=== PATIENT | male | born 1945 | race Caucasian/White ===

== ENCOUNTER 2017-03-28 08:21 | Emergency (ER) | payer MEDICARE ==
[~2017-03-28] VITALS: Ht 182.9 cm; Wt 150.0 kg
[~2017-03-28 08:21] MED LIST: ALBUAER3 INH; ASPI1TAB69 PO; BENZ100 PO; CYCL10TA PO; DEXT1TAB18 PO; GABA300C5 PO; GLIP10TA6 PO; HYDR-3535 PO; LISI-515 PO; METF1000 PO; METO-309 PO; OMEP20TA93 PO; OXYC1TAB63 PO; SIMV20TA PO; SITA50 PO; WARF-23 PO
[2017-03-28 08:23] VITALS: BP 136/75; PULSE 80; RESP 17; TEMP 98.2; O2SAT 97
[2017-03-28] MEDS ORDERED: ASPI-516 CHEW (09:11)
[2017-03-28] MEDS ORDERED: FURO1TAB60 PO (09:11)
[2017-03-28] MEDS ORDERED: WARF-60 PO (09:11)
[2017-03-28] MEDS ORDERED: AMIT25TA9 PO (09:11)
[2017-03-28] MEDS: RESP: ALBUTEROL 2.5 MG/3 ML NEB (SCH) INH ×2 (09:40→09:41)
[2017-03-28 09:41] VITALS: O2SAT 96
[2017-03-28] MEDS ORDERED: RESP: ALBUTEROL 2.5 MG/IPRATROPIUM 0.5 MG NEB (SCH) INH ONE (09:45)
[2017-03-28] MEDS ORDERED: methylPREDNISolone SOD SUCC 125 MG/2 ML VIAL IV PUSH ONE (09:45)
[2017-03-28] MEDS ORDERED: SODIUM CHLORIDE 0.9% FLUSH 10 ML FLUSH IVF PRN (09:45)
[2017-03-28 10:05] LABS: AUTOMATED NEUTROPHIL # 7.2 TH/MM3 (1.8-7.7); BASOPHIL # 0.1 TH/MM3 (0-0.2); BASOPHIL % 0.7 % (0.0-2.0); EOSINOPHIL # 0.4 TH/MM3 (0-0.4); EOSINOPHIL % 3.6 % (0.0-4.0); HEMOGLOBIN 14.4 GM/DL (13.0-17.0); LYMPHOCYTE # 3.4 TH/MM3 (1.0-4.8); MEAN CORPUSCULAR HEMOGLOBIN 30.3 PG (27.0-34.0); MEAN CORPUSCULAR HGB CONC 34.4 % (32.0-36.0); MEAN PLATELET VOLUME 7.4 FL (7.0-11.0); MONO % 7.2 % (0.0-8.0); MONOCYTE # 0.9 TH/MM3 (0-0.9); NEUT % 60.5 % (16.0-70.0); PLATELET COUNT 182 TH/MM3 (150-450); RED BLOOD COUNT 4.77 MIL/MM3 (4.50-5.90); RED CELL DISTRIBUTION WIDTH 14.4 % (11.6-17.2)
[2017-03-28 10:11] LABS: INTERNATIONAL NORMALIZED RATIO 1.4 RATIO; PROTHROMBIN TIME - PATIENT 13.8 SEC (9.8-11.6)
[2017-03-28 10:27] LABS: ALBUMIN 3.2 GM/DL (3.4-5.0); ALT (GPT) 15 U/L (12-78); AST (GOT) 33 U/L (15-37); BLOOD UREA NITROGEN 14 MG/DL (7-18); CALCIUM 9.1 MG/DL (8.5-10.1); CHLORIDE 99 MEQ/L (98-107); CREATININE 1.34 MG/DL (0.60-1.30); GLOMERULAR FILTRATION RATE 53 ML/MIN (>89); GLUCOSE,RANDOM 133 MG/DL (74-106); SODIUM (NA) 133 MEQ/L (136-145)
[2017-03-28 10:29] LABS: ALKALINE PHOSPHATASE 77 U/L (45-117); TOTAL BILIRUBIN ADULT 0.6 MG/DL (0.2-1.0); TOTAL PROTEIN 7.6 GM/DL (6.4-8.2); TROPONIN I LESS THAN 0.02 NG/ML (0.02-0.05)
[2017-03-28 10:31] VITALS: RESP 20; O2SAT 94
--- NOTE | 2017-03-28 10:49 | RADRPT ---
EXAM DATE/TIME: 03/28/2017 10:23 [place] COMPARISON: CHEST PA & LAT, January 16, 2016, 16:07. INDICATIONS : Short of breath. MEDICAL HISTORY : Hypertension. Myocardial infarction. Hypercholesterolemia. Thyroid SURGICAL HISTORY : CABG. ENCOUNTER: Initial ACUITY: 4 - 6 days PAIN SCORE: 9/10 LOCATION: Bilateral chest FINDINGS: Sternal wires from previous bypass are noted. The lungs are under aerated. There is mild interstiti al edema present. There is no pneumothorax, pleural effusion or consolidation. CONCLUSION: Previous bypass, probable mild failure. Nicanor Nicole MD FACR on March 28, 2017 at 10:47 Board Certified Radiologist. This report was verified electronically.
[2017-03-28] MEDS ORDERED: HYDROmorphone HCL PF 1 MG/ML VIAL IV PUSH ONE (11:15)
[2017-03-28] MEDS ORDERED: FUROSEMIDE 40 MG/4 ML VIAL IV PUSH ONE (11:15)
[2017-03-28] MEDS ORDERED: HYDROmorphone HCL PF 2 MG/ML VIAL IVS ONE (11:30)
[2017-03-28 11:42] VITALS: BP 139/87; PULSE 82; RESP 20; O2SAT 97
[2017-03-28] MEDS ORDERED: DOXY100C PO ×2 (11:51→11:59)
--- NOTE | 2017-03-28 11:58 | PD ---
HPI Chief Complaint: Respiratory Distress Time Seen by Provider: 09:34 Travel History International Travel<30 days: No Contact w/Intl Traveler<30days: No Traveled to known affect area: No History of Present Illness HPI This is a 71-year-old male with a history of diabetes mellitus, COPD, atrial fibrillation, previous fluid overload, presents to clinic to shortness of breath. Patient states that over the last few days she has become more short of breath. He denies any fevers but does state that he has felt warm. He denies any chills. He denies any nausea vomiting diarrhea. He denies any chest pain or palpitations. PFSH Past Medical History Hx Anticoagulant Therapy: Yes Arthritis: Yes Asthma: No Autoimmune Disease: No Blood Disorders: No Anxiety: No Depression: No Heart Rhythm Problems: No Cancer: No Cardiac Catheterization: Yes Cardiovascular Problems: Yes High Cholesterol: Yes Chemotherapy: No Chest Pain: Yes Congestive Heart Failure: Yes COPD: No Cerebrovascular Accident: No Diabetes: Yes Patient Takes Glucophage: Yes (METFORMIN) Diminished Hearing: Yes Endocrine: No Gastrointestinal Disorders: Yes GERD: No Glaucoma: No Genitourinary: No Headaches: No Hepatitis: No Hiatal Hernia: No Hypertension: Yes (DENIES) Immune Disorder: No Implanted Vascular Access Dvce: Yes Kidney Stones: No Musculoskeletal: Yes Neurologic: Yes Psychiatric: No Reproductive: No Respiratory: Yes (COPD) Migraines: No Myocardial Infarction: Yes (OH X3) Radiation Therapy: No Renal Failure: No Seizures: No Sickle Cell Disease: No Sleep Apnea: No Thyroid Disease: Yes Ulcer: No Past Surgical History Abdominal Surgery: Yes (CHOLECYSTECTOMY) AICD: Yes Appendectomy: No Arteriovenous Shunt: No Body Medical Devices: CARDIAC STENT Cardiac Surgery: Yes (CABG, STENTS) Cholecystectomy: Yes Coronary Artery Bypass Graft: Yes (X1 VESSEL 2011) Coronary Stent: Yes Ear Surgery: No Endocrine Surgery: No Eye Surgery: No Genitourinary Surgery: No Gynecologic Surgery: No Insulin Pump: No Joint Replacement: Yes (BL HIP,LEFT KNEE) Oral Surgery: No Pacemaker: No Thoracic Surgery: No Other Surgery: Yes (CABG, CHOLECYSTECTOMY, HIP REPLACEMENT, STENTS, BACK SURGERY) Social History Alcohol Use: No Tobacco Use: No Substance Use: No Allergies-Medications (Allergen,Severity, Reaction): Coded Allergies: Sulfa (Sulfonamide Antibiotics) (Unverified Allergy, Severe, ANAPHYLAXIS, 03/28/17) chlorzoxazone (Unverified Allergy, Severe, ANAPHYLAXIS, 03/28/17) Reported Meds & Prescriptions Reported Meds & Active Scripts Active Doxycycline Hyclate 100 Mg Cap 100 Mg PO BID Proair Hfa 8.5 GM Inh (Albuterol Sulfate) 90 Mcg/Act Aer 2 Puff INH Q4-6H PRN 108 mcg/actuation Mucinex DM Maximum Strength (Dextromethorphan-Guaifenesin ER 12 HR) 60-1,200 Mg Tab 1 Tab PO BID PRN 7 Days Reported Amitriptyline (Amitriptyline HCl) 25 Mg Tab 25 Mg PO HS Aspirin 81 Mg Chew 81 Mg CHEW DAILY Lasix (Furosemide) 40 Mg Tab 40 Mg PO DAILY Warfarin 6 Mg Tab 6 Mg PO DAILY Warfarin 5 Mg Tab 5 Mg PO HS Omeprazole 20 Mg Tab 20 Mg PO HS Flexeril (Cyclobenzaprine HCl) 10 Mg Tab 10 Mg PO TID Oxycodone-Acetaminophen 5-325 mg Tab 1 Tab PO DIRECTED PRN Lisinopril 20 Mg Tab 20 Mg PO DAILY Simvastatin 20 Mg Tab 20 Mg PO HS Lopressor (Metoprolol Tartrate) 50 Mg Tab 50 Mg PO BID Januvia (Sitagliptin Phosphate) 50 Mg Tab 50 Mg PO DAILY Gabapentin 300 Mg Cap 300 Mg PO TID Metformin (Metformin HCl) 1,000 Mg Tab 1,000 Mg PO BIDPC With meals Glipizide 10 Mg Tab 20 Mg PO DAILY Take 30 minutes before a meal Review of Systems Except as stated in HPI: all other systems reviewed are Neg General / Constitutional: No: Fever, Chills HENT: No: Headaches, Vertigo, Lightheadedness, Neck Pain Cardiovascular: Positive: Irregular Rhythm (History of), No: Chest Pain or Discomfort, Palpitations Respiratory: Positive: Shortness of Breath, No: Cough, Wheezing Gastrointestinal: No: Nausea, Vomiting, Abdominal Pain Musculoskeletal: Positive: Pain (Chronic), No: Weakness Neurologic: No: Weakness, Dizziness, Headache Physical Exam Narrative GENERAL: Well-developed well-nourished male in mild respiratory discomfort. SKIN: Focused skin assessment warm/dry. HEAD: Atraumatic. Normocephalic. EYES: Pupils equal and round. No scleral icterus. No injection or drainage. ENT: No nasal bleeding or discharge. Mucous membranes pink and moist. NECK: Trachea midline. Supple. CARDIOVASCULAR: Regular rate and rhythm. No murmur appreciated. RESPIRATORY: Bilateral fine rales. The basis. There was some mild rhonchi noted as well. GASTROINTESTINAL: Abdomen soft, non-tender, nondistended. MUSCULOSKELETAL: No obvious deformities. Trace bilateral lower extremity edema. NEUROLOGICAL: Awake and alert. No obvious cranial nerve deficits. Motor grossly within normal limits. Normal speech. Data Data Last Documented VS Vital Signs Date Time Temp Pulse Resp B/P (MAP) Pulse Ox O2 Delivery O2 Flow Rate FiO2 03/28/17 11:42 82 20 139/87 (104) 97 Nasal Cannula 2.00 03/28/17 08:23 98.2 Orders Orders Complete Blood Count With Diff (03/28/17 09:34) Comprehensive Metabolic Panel (03/28/17 09:34) Act Partial Throm Time (Ptt) (03/28/17 09:34) Prothrombin Time / Inr (Pt) (03/28/17 09:34) Troponin I (03/28/17 09:34) Iv Access Insert/Monitor (03/28/17 09:34) Ecg Monitoring (03/28/17 09:34) Oximetry (03/28/17 09:34) Oxygen Administration (03/28/17 09:34) Chest, Pa & Lat (03/28/17 09:34) Sodium Chloride 0.9% Flush (Ns Flush) (03/28/17 09:45) Methylprednisolone So Succ Inj (Solumedr (03/28/17 09:45) Albuterol-Ipratropium Neb (Duoneb Neb) (03/28/17 09:45) Albuterol Neb (Albuterol Neb) (03/28/17 09:45) Arterial Blood Gas (Abg) (03/28/17 09:35) Electrocardiogram (03/28/17 ) Hydromorphone Pf Inj (Dilaudid Pf Inj) (03/28/17 11:15) Furosemide Inj (Lasix Inj) (03/28/17 11:15) Hydromorphone Pf Inj (Dilaudid Pf Inj) (03/28/17 11:30) Labs Laboratory Tests Test 03/28/17 09:30 03/28/17 09:41 White Blood Count 12.0 TH/MM3 Red Blood Count 4.77 MIL/MM3 Hemoglobin 14.4 GM/DL Hematocrit 42.0 % Mean Corpuscular Volume 88.0 FL Mean Corpuscular Hemoglobin 30.3 PG Mean Corpuscular Hemoglobin Concent 34.4 % Red Cell Distribution Width 14.4 % Platelet Count 182 TH/MM3 Mean Platelet Volume 7.4 FL Neutrophils (%) (Auto) 60.5 % Lymphocytes (%) (Auto) 28.0 % Monocytes (%) (Auto) 7.2 % Eosinophils (%) (Auto) 3.6 % Basophils (%) (Auto) 0.7 % Neutrophils # (Auto) 7.2 TH/MM3 Lymphocytes # (Auto) 3.4 TH/MM3 Monocytes # (Auto) 0.9 TH/MM3 Eosinophils # (Auto) 0.4 TH/MM3 Basophils # (Auto) 0.1 TH/MM3 CBC Comment DIFF FINAL Differential Comment Prothrombin Time 13.8 SEC Prothromb Time International Ratio 1.4 RATIO Activated Partial Thromboplast Time 32.1 SEC Blood Urea Nitrogen 14 MG/DL Creatinine 1.34 MG/DL Random Glucose 133 MG/DL Total Protein 7.6 GM/DL Albumin 3.2 GM/DL Calcium Level 9.1 MG/DL Alkaline Phosphatase 77 U/L Aspartate Amino Transf (AST/SGOT) 33 U/L Alanine Aminotransferase (ALT/SGPT) 15 U/L Total Bilirubin 0.6 MG/DL Sodium Level 133 MEQ/L Potassium Level 4.8 MEQ/L Chloride Level 99 MEQ/L Carbon Dioxide Level 27.0 MEQ/L Anion Gap 7 MEQ/L Estimat Glomerular Filtration Rate 53 ML/MIN Troponin I LESS THAN 0.02 NG/ML Blood Gas Puncture Site RT RADIAL Blood Gas Patient Temperature 98.6 Blood Gas HCO3 24 mmol/L Blood Gas Base Excess 0.3 mmol/L Blood Gas Oxygen Saturation 95 % Arterial Blood pH 7.42 Arterial Blood Partial Pressure CO2 39 mmHg Arterial Blood Partial Pressure O2 90 mmHG Arterial Blood Oxygen Content 18.4 Vol % Arterial Blood Carboxyhemoglobin 1.4 % Arterial Blood Methemoglobin 0.7 % Blood Gas Hemoglobin 13.7 G/DL Oxygen Delivery Device NASAL CANNULA Blood Gas Liter Flow 2 L/M MDM Medical Decision Making Medical Screen Exam Complete: Yes Emergency Medical Condition: Yes Differential Diagnosis Pneumonia versus CHF versus fluid overload versus COPD exacerbation. Narrative Course 71-year-old male with a history of COPD, CHF, diabetes mellitus, who presents today with weights of shortness of breath. Patient has no reported fevers or chills. He does still report feeling warm at times. The patient is noted to have mild fluid overload on chest x-ray. Sats are in the 90s. The patient's been given 40 mg of Lasix. He will be discharged with a prescription for doxycycline 100 mg p.o. twice daily 7 days. His INR was 1.4 which is subtherapeutic. He is instructed to take an extra dose of Coumadin tonight. He is instructed to return to be DOS any worsening symptoms. Diagnosis Primary Impression: Bronchitis Additional Impressions: Mild fluid overload Atrial fibrillation Renal insufficiency Subtherapeutic international normalized ratio (INR) Additional Instructions: Take 1 extra dose of Coumadin tonight. Follow-up with primary physician for repeat INR. Med/Other Pt SpecificInfo: Prescription(s) given Scripts Doxycycline Hyclate (Doxycycline Hyclate) 100 Mg Cap 100 MG PO BID for Infection, #14 CAP 0 Refills Prov: Jurgen Corbin MD 03/28/17 Disposition: 01 DISCHARGE HOME Condition: Stable Jurgen Corbin MD Mar 28, 2017 11:58
[2017-03-28 12:28] VITALS: BP_SYST 138; BP_SYST 161; BP_DIAS 75; BP_DIAS 81
--- NOTE | 2017-03-28 21:56 | EKG ---
Date Performed: 03/28/2017 Time Performed: 09:17:06 PTAGE: 71 years EKG: ATRIAL FIBRILLATION INFERIOR MYOCARDIAL INFARCTION ANTEROSEPTAL MYOCARDIAL INFARCTION ABNOR MAL ECG PREVIOUS TRACING : 01/16/2016 16.20 DOCTOR: Ayesha Mandujano Interpretating Date/Time 03/28/2017 21:55:03
== END 2017-03-28 13:18 | disposition home or self-care (01) ==
LOC: NEPE 08:21
DX: J44.9 Chronic obstructive pulmonary disease, unspecified (principal); I48.91 Unspecified atrial fibrillation; N28.9 Disorder of kidney and ureter, unspecified; R79.1 Abnormal coagulation profile; I11.0 Hypertensive heart disease with heart failure; I50.9 Heart failure, unspecified; E11.9 Type 2 diabetes mellitus without complications; E78.00 Pure hypercholesterolemia, unspecified; Z79.01 Long term (current) use of anticoagulants; Z79.84 Long term (current) use of oral hypoglycemic drugs
CPT/HCPCS: 36600; 71046; 80053; 82805; 84484; 85025; 85610; 85730; 93005; 94640; 94664; 96374; 96375; 99285; J1170; J1940; J2930; J7613